=== PATIENT | female | born 1995 ===

== ENCOUNTER 2017-03-24 20:01 | Emergency (ER) | payer BC ==
--- NOTE | 2017-03-24 21:22 | UC ---
Complaint Female HPI - HPI Summary HPI Summary: Has noticed foul-smelling vaginal discharge that is kind of slater or brown since 3 days ago. Had IUD inserted in Dec, and neg GC/Chlamydia before then. Partner also negative for STIs then, no new partners since then, has no concerns about STIs. Denies urinary sx, fever, belly pain, or itching. Pt does not want a pelvic exam today. - History Of Current Complaint Chief Complaint: UCGU Stated Complaint: VAGINAL DISCHARGE Time Seen by Provider: 03/24/17 20:47 Hx Obtained From: Patient Hx Last Menstrual Period: 03/11/17 ?: No Onset/Duration: Gradual Onset, Lasting Days Timing: Constant Severity Initially: Mild Severity Currently: Mild Character: Not Applicable Aggravating Factor(s): Nothing Associated Signs And Symptoms: Positive: Vaginal Discharge - Allergies/Home Medications Allergies/Adverse Reactions: Allergies Allergy/AdvReac Type Severity Reaction Status Date / Time No Known Allergies Allergy Verified 03/24/17 20:52 PMH/Surg Hx/FS Hx/Imm Hx Cardiovascular History Of: Denies: Cardiac Disorders - Surgical History Surgical History: None - Family History Known Family History: Negative: Blood Disorder - Social History Occupation: Student Alcohol Use: Occasionally Substance Use Type: None Smoking Status (MU): Never Smoked Tobacco Review of Systems Constitutional: Negative Skin: Negative Eyes: Negative ENT: Negative Respiratory: Negative Cardiovascular: Negative Gastrointestinal: Negative Genitourinary: Other - vaginal discharge Motor: Negative Neurovascular: Negative Musculoskeletal: Negative Neurological: Negative Psychological: Negative All Other Systems Reviewed And Are Negative: Yes Physical Exam Triage Information Reviewed: Yes Appearance: Well-Appearing, No Pain Distress, Well-Nourished Vital Signs: Initial Vital Signs Temp 98.3 F 03/24/17 20:46 Pulse 84 03/24/17 20:46 Resp 16 03/24/17 20:46 BP 89/65 03/24/17 20:46 Pulse Ox 100 03/24/17 20:46 Vital Signs Reviewed: Yes Eye Exam: Normal Eyes: Positive: Conjunctiva Clear ENT Exam: Normal ENT: Positive: Normal ENT inspection, Hearing grossly normal, Pharynx normal, TMs normal Dental Exam: Normal Neck exam: Normal Neck: Positive: Supple, Nontender, No Lymphadenopathy Respiratory Exam: Normal Respiratory: Positive: Chest non-tender, Lungs clear, Normal breath sounds, No respiratory distress, No accessory muscle use Cardiovascular Exam: Normal Cardiovascular: Positive: RRR, No Murmur Abdominal Exam: Normal - pelvic exam declined, pt obtained vaginal swab herself Abdomen Description: Negative: CVA Tenderness (R), CVA Tenderness (L) Musculoskeletal Exam: Normal Neurological Exam: Normal Neurological: Positive: Alert Psychological Exam: Normal Skin Exam: Normal Complaint Female Dx - Differential Dx/Diagnosis Provider Diagnoses: bacterial vaginosis Discharge - Discharge Plan Condition: Stable Disposition: HOME Prescriptions: Clindamycin SUPP (NF) [Cleocin 100 MG SUPP (NF)] 100 mg VAGINAL BEDTIME #3 sup Patient Education Materials: Bacterial Vaginosis (ED) Additional Instructions: If you have new or worsening symptoms, you will need another visit with a more complete exam. You can return here, go to [facility], or see your primary care provider.
== END 2017-03-24 21:31 | disposition home or self-care (01) ==
LOC: UCEAST 20:01
DX: N76.0 Acute vaginitis (principal)
CPT/HCPCS: 87480; 87491; 87510; 87591; 87660; 99202; G0463

== ENCOUNTER 2017-04-09 16:36 | Emergency (ER) | payer BC ==
[2017-04-09 17:00] VITALS: BP 98/53
[2017-04-09] MEDS ORDERED: metroNIDAZOLE TAB* 250 MG PO ONE (19:42)
--- NOTE | 2017-04-09 20:25 | UC ---
Complaint Female HPI - HPI Summary HPI Summary: BEGAN HAVING MALODOROUS BROWN VAGINAL DISCHARGE ON 03/22/17. DIAGNOSED WITH BV ON 03/24/17, TREATED WITH FLAGYL. REFUSED PELVIC EXAM, PREFERS TO SELF-SWAB AFFIRM. SYMPTOMS IMPROVED SUBSTANTIALLY AFTER TREATMENT BUT STILL PERSIST. WOULD LIKE REEVAULATION AND TO SELF-SWAB TEST. NO FEVER. NO GENITAL LESIONS. NO NEW OR RECENT SEXUAL ACTIVITY. - History Of Current Complaint Chief Complaint: UCGU Stated Complaint: BV RE-CHECK Time Seen by Provider: 04/09/17 18:48 Hx Obtained From: Patient Hx Last Menstrual Period: spotting for 10days Onset/Duration: Gradual Onset, Lasting Weeks, Still Present Timing: Lasting Weeks Severity Initially: Moderate Severity Currently: Mild Pain Intensity: 0 Pain Scale Used: 0-10 Numeric Character: Dull Aggravating Factor(s): Nothing Associated Signs And Symptoms: Positive: Vaginal Bleeding/Discharge, Vaginal Discharge. Negative: Fever, Back Pain, Nausea, Vomiting(# Of Episodes =), Genital Swelling, Genital Blisters, Retained Foregin Body (Specify) - Risk Factors Ectopic Risk Factor: Negative Ovarian Torsion Risk Factor: Negative - Allergies/Home Medications Allergies/Adverse Reactions: Allergies Allergy/AdvReac Type Severity Reaction Status Date / Time No Known Allergies Allergy Verified 04/09/17 17:01 PMH/Surg Hx/FS Hx/Imm Hx Previously Healthy: Yes Cardiovascular History Of: Denies: Cardiac Disorders - Surgical History Surgical History: None - Family History Known Family History: Negative: Blood Disorder - Social History Occupation: Student Lives: With Family Alcohol Use: None Substance Use Type: Marijuana Smoking Status (MU): Never Smoked Tobacco Review of Systems Constitutional: Negative Skin: Negative Eyes: Negative ENT: Negative Respiratory: Negative Cardiovascular: Negative Gastrointestinal: Negative Genitourinary: Other - MALODOROUS BROWN VAGINAL DISCHARGE Motor: Negative Neurovascular: Negative Musculoskeletal: Negative Neurological: Negative Psychological: Negative All Other Systems Reviewed And Are Negative: Yes Physical Exam Triage Information Reviewed: Yes Appearance: Well-Appearing, No Pain Distress, Well-Nourished Vital Signs: Initial Vital Signs Temp 98.9 F 04/09/17 16:56 Pulse 73 04/09/17 16:56 Resp 18 04/09/17 16:56 BP 98/53 04/09/17 16:56 Pulse Ox 100 04/09/17 16:56 Vital Signs Reviewed: Yes Eye Exam: Normal ENT Exam: Normal ENT: Positive: Normal ENT inspection, Hearing grossly normal, TMs normal Dental Exam: Normal Neck exam: Normal Neck: Positive: Supple, Nontender, No Lymphadenopathy Respiratory Exam: Normal Respiratory: Positive: Chest non-tender, Lungs clear, Normal breath sounds, No respiratory distress, No accessory muscle use Cardiovascular Exam: Normal Cardiovascular: Positive: RRR, No Murmur, Pulses Normal Abdominal Exam: Normal Abdomen Description: Positive: Nontender, No Organomegaly, Soft. Negative: CVA Tenderness (R), CVA Tenderness (L) Musculoskeletal Exam: Normal Musculoskeletal: Positive: Strength Intact, ROM Intact Neurological Exam: Normal Psychological Exam: Normal Psychological: Positive: Normal Response To Family Skin Exam: Normal Complaint Female Dx - Differential Dx/Diagnosis Differential Diagnosis/HQI/PQRI: Renal Colic, Sexually Transmitted Disease, Urinary Tract Infection Provider Diagnoses: DYSURIA Discharge - Discharge Plan Condition: Stable Disposition: HOME Prescriptions: Metronidazole [Flagyl 500 MG TAB] 500 mg PO TID #21 tab Patient Education Materials: Bacterial Vaginosis (ED) Referrals: [facility] [place] [facility] [Outside] No Primary Care Phys,NOPCP [Primary Care Provider] - José Ortega MD [Medical Doctor] -
--- NOTE | 2017-04-12 12:32 | UC ---
Progress - Progress Note Progress Note: Labs negative for gardnerella. Pt may d/c PO flagyl if she feels it is not helping. If symptoms have improved since starting abx, may finish course as prescribed. See [facility] Striper for f/u if sx persist or recur.
== END 2017-04-09 19:59 | disposition home or self-care (01) ==
LOC: UCEAST 16:36
DX: N76.0 Acute vaginitis (principal); B96.89 Other specified bacterial agents as the cause of diseases classified elsewhere
CPT/HCPCS: 81003; 84702; 87480; 87510; 87660; 99212; A9270-GY; G0463